=== PATIENT | female | born 1995 | race Caucasian/White ===

== ENCOUNTER 2021-07-30 13:50 | Emergency (ER) | payer OTHER, SELFPAY ==
[2021-07-30 13:51] VITALS: BP 143/118; PULSE 118; RESP 19; TEMP 35.7; O2SAT 100; BMI 43.0
--- NOTE | 2021-07-30 13:55 | EKG12_ITS ---
Test Reason : CP Blood Pressure : / mmHG Vent. Rate : 094 BPM Atrial Rate : 094 BPM P-R Int : 136 ms QRS Dur : 080 ms QT Int : 356 ms P-R-T Axes : 009 042 018 degrees QTc Int : 445 ms Normal sinus rhythm Normal ECG Confirmed by RJ PETIT, NURYS ([id number]), newspaper photo editor SHYAM SANABRIA ([id number]) on 07/31/2021 11:38:53 AM Referred By: Confirmed By:NURYS DE LA ROSA MD
== END 2021-07-30 15:00 | disposition left against medical advice (07) ==
LOC: ED 15:37
PROVIDERS: PCP Nurse Practitioner Family
DX: R07.9 Chest pain, unspecified (principal); Z53.21 Procedure and treatment not carried out due to patient leaving prior to being seen by health care provider
CPT/HCPCS: 93005